=== PATIENT | female | born 1950 | race Caucasian/White ===

== ENCOUNTER → 2019-02-28 | Outpatient (CLI) | payer MEDICARE, OTHER ==
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
== END | disposition home or self-care (01) ==
LOC: SLEEP 15:42
PROVIDERS: ATTEND Internal Medicine
DX: G47.33 Obstructive sleep apnea (adult) (pediatric) (principal); G25.81 Restless legs syndrome; R35.1 Nocturia; E66.9 Obesity, unspecified; I10 Essential (primary) hypertension; E03.9 Hypothyroidism, unspecified; R42 Dizziness and giddiness; F32.9 Major depressive disorder, single episode, unspecified; F41.9 Anxiety disorder, unspecified; E78.5 Hyperlipidemia, unspecified; K21.9 Gastro-esophageal reflux disease without esophagitis; Z98.890 Other specified postprocedural states; Z87.09 Personal history of other diseases of the respiratory system; Z68.30 Body mass index [BMI] 30.0-30.9, adult; Z92.3 Personal history of irradiation; Z91.81 History of falling; Z90.711 Acquired absence of uterus with remaining cervical stump; Z99.89 Dependence on other enabling machines and devices
CPT/HCPCS: 99211

== ENCOUNTER → 2021-01-14 | Outpatient (CLI) | payer MEDICARE, BC ==
--- NOTE | 2021-01-14 17:22 | SFUN ---
SLEEP CENTER FOLLOW UP NOTE DATE OF SERVICE: 01/14/2021 This 70-year-old lady has been followed in Sleep Center for treatment of obstructive sleep apnea-hypopnea syndrome. I saw this patient for consultation in 2019 when we did a polysomnogram which showed that the patient had obstructive sleep apnea. Then we did a CPAP titration, when her respiration was normalized, and the patient received her CPAP unit, but she has never come for a follow-up visit since that time. I discussed the results of her sleep studies with the patient in detail. Since starting to use CPAP equipment, she feels significantly better. [place] Sleepiness Scale today is 10. She does not have significant problems using the CPAP equipment with relationship to mask fitting, pressure or humidification. She is able to use the equipment every night. She does not remember when she replaced her air filter in her machine. I checked her CPAP unit. Range of the pressure is 5 to 15, average pressure 9.7. Usage is 30/30 nights for more than 4 hours, average 8.4 hours per night. Leak is 23 L/minute, which is borderline. Apnea-hypopnea index is 4.1, which is normal. The filter needs to be replaced. It is a grayish color instead of white. MEDICATIONS: 1. Synthroid 100 mcg once a day. 2. Losartan 100 mg once a day. 3. Hydrochlorothiazide 25 mg once a day. 4. Duloxetine 60 mg once a day. 5. Buspirone 10 mg one tablet 3 times a day. 6. Lamotrigine 150 mg two tablets once a day. 7. Fluticasone nasal spray. 8. Atorvastatin 20 mg once a day. 9. Ropinirole 1 mg once a day. 10.Amlodipine 5 mg once a day. 11.Montelukast 10 mg once a day. 12.Levocetirizine 5 mg once a day. 13.Omeprazole 40 mg once a day. 14.Meloxicam 7.5 mg once a day. PHYSICAL EXAMINATION: GENERAL: A pleasant patient in no distress. VITAL SIGNS: BP 127/76, HR 62, RR 12, height 5 feet 5 inches, weight 196.8, body mass index 30.9, temperature 97.7, oxygen saturation at room air 97%. HEENT: PERRLA, EOMI. Evaluation of oropharynx showed tongue protrudes midline. Low position of soft palate. Mallampati III. NECK: Supple. No JVD. Thyroid is not palpable. LUNGS: Clear to percussion and to auscultation. Good air exchange. No wheezing or rhonchi. HEART: S1, S2 regular. No murmurs, gallops or rubs. ABDOMEN: Slightly obese. EXTREMITIES: No clubbing or cyanosis. WAREHOUSE MATERIAL HANDLER: Awake, alert, and oriented X3. Cranial nerves 2 to 7 intact. There is no fasciculation or atrophy. noted. No focal deficits observed. IMPRESSION: 1. Obstructive sleep apnea-hypopnea syndrome. The patient demonstrated 100% compliance with treatment, benefitting from treatment. 2. Mild obesity. 3. Hypertension. 4. Hypothyroidism. 5. History of anxiety. 6. History of depression. 7. Hyperlipidemia. 8. Acid reflux. 9. Restless leg symptoms. 10.History of nasal problems, status post nasal surgery for nasal septum deviation. 11.Status post tonsillectomy and adenoidectomy. 12.Status post bilateral surgery for cataracts. 13.Status post spinal surgery for spinal stenosis and ruptured disc on June 03, 2020. 14.History of complex seizure disorder. 15.History of mitral valve prolapse. PLAN: 1. Position of the machine should be about a foot lower than the position of the head. 2. Chamber of humidifier should be dried in the morning and also tube has to be dried in the morning. 3. Replace air filter. 4. Patient will continue to use PAP equipment every night for the whole night. 5. Sleep hygiene with regular time in bed for at least 7-1/2 to 8 hours. 6. Precautions related to driving. No driving if feeling sleepiness. 7. I will maintain all necessary prescription for PAP supplies including mask, tube, filters. 8. Watching weight. 9. Follow-up visit in 6 months or earlier if patient has any problems. Thank you very much for allowing me to participate in the management of your patient. Sincerely, Romeo Cottrell MD, PhD, FAASM Diplomat of [employer] [employer] [employer] Water Mechanic of [facility] [place] MMODL / HANNAH: [id number] /
== END ==
LOC: SLEEP 14:31
PROVIDERS: ATTEND Internal Medicine
DX: G47.33 Obstructive sleep apnea (adult) (pediatric) (principal); E66.9 Obesity, unspecified; I10 Essential (primary) hypertension; E78.5 Hyperlipidemia, unspecified; E03.8 Other specified hypothyroidism; F41.9 Anxiety disorder, unspecified; F32.9 Major depressive disorder, single episode, unspecified; K21.9 Gastro-esophageal reflux disease without esophagitis; Z98.890 Other specified postprocedural states; G25.81 Restless legs syndrome; Z98.41 Cataract extraction status, right eye; Z98.42 Cataract extraction status, left eye; Z90.09 Acquired absence of other part of head and neck; Z98.1 Arthrodesis status; I34.1 Nonrheumatic mitral (valve) prolapse; G40.209 Localization-related (focal) (partial) symptomatic epilepsy and epileptic syndromes with complex partial seizures, not intractable, without status epilepticus

== ENCOUNTER → 2021-07-15 | Outpatient (CLI) | payer MEDICARE, BC ==
--- NOTE | 2021-07-15 20:37 | SFUN ---
SLEEP CENTER FOLLOW UP NOTE DATE OF SERVICE: 07/15/2021 This 70-year-old lady has been followed in Sleep Center for treatment of obstructive sleep apnea-hypopnea syndrome. The patient continues to use her CPAP equipment every night for the whole night. She is using a cleaning system for the CPAP. [place] Sleepiness Scale today is only 1, which is perfect. I checked her CPAP unit. Range of the pressure is 5 to 15, with average pressure 9.4 cm of water, usage 28/30 nights for more than 4 hours, average usage 8.3 hours per night, which is good compliance. Leak is increased at 42 L/minute. Apnea-hypopnea index is slightly above border, 6.1. Patient sometimes has discharge from her nose in the morning. I discussed with her adjustments of humidity; she did not know how to adjust it by herself, and I explained to her in detail the process of adjustments. MEDICATIONS: 1. Losartan 100 mg once a day. 2. Hydrochlorothiazide 25 mg once a day. 3. Synthroid 100 mcg once a day. 4. Omeprazole once a day. 5. Restasis twice a day. 6. Atorvastatin 20 mg once a day. 7. Ropinirole 1 mg once a day. 8. Fluticasone nasal spray. PHYSICAL EXAMINATION: GENERAL: Pleasant patient in no distress. VITAL SIGNS: BP 105/63, HR 79, RR 15, height 5 feet 5 inches, weight 181.4, which is 15 pounds less than during the last visit. Body mass index 30.1. Temperature 97.5, oxygen saturation at room air 98%. HEENT: PERRLA, EOMI, evaluation of oropharynx showed tongue protrudes midline. Low position of soft palate; Mallampati III. NECK: Supple, no JVD. Thyroid is not palpable. LUNGS: Clear to percussion and to auscultation. Good air exchange. No wheezing or rhonchi. HEART: S1, S2 regular. No murmurs, gallops, or rubs. ABDOMEN: Soft and nontender. Bowel sounds are present. No organomegaly appreciated. EXTREMITIES: No clubbing or cyanosis. TANK BUILDER SUPERVISOR: Awake, alert, and oriented X3. Cranial nerves 2 to 7 intact. There is no fasciculation or atrophy. noted. No focal deficits observed. IMPRESSION: 1. Obstructive sleep apnea-hypopnea syndrome. Patient demonstrated great compliance with treatment, benefitting from treatment. 2. Mild obesity. Patient lost about 15 pounds since last visit. 3. Hypertension, under good control with medications. 4. Hypothyroidism. 5. History of anxiety. 6. History of depression. 7. Hyperlipidemia. 8. Acid reflux. 9. Restless legs syndrome, on treatment with ropinirole. 10.History of nasal problems. Patient still sometimes has discharge from her nose in the morning. 11.Allergies. 12.Status post tonsillectomy and adenoidectomy. 13.Status post bilateral surgery for cataracts. 14.Status post spinal surgery for spinal stenosis and disc rupture in May of 2020. 15.History of complex seizure disorder. 16.History of mitral valve prolapse. PLAN: 1. The patient should stop using the cleaning system for the machine. There is some data that it may create some problems. She should use soap and water. 2. I taught the patient how to adjust humidity in the machine. She could try to change level of humidity with a goal to decrease any nasal problems in the morning after awakening. 3. Patient will continue to use PAP equipment every night for the whole night. 4. Sleep hygiene with regular time in bed for at least 7-1/2 to 8 hours. 5. Precautions related to driving. No driving if feeling sleepiness. 6. I will maintain all necessary prescription for PAP supplies including mask, tube, filters. 7. Watching weight. 8. Follow-up visit in 6 months or earlier if patient has any problems. Thank you very much for allowing me to participate in the management of your patient. Sincerely, Romeo Cottrell MD, PhD, FAASM Diplomat of [employer] Specialties Sleep Medicine Board of [employer] Board of Internal Medicine Clerical Supervisor of [facility] [place] MMODL / THUN: [id number] /
== END | disposition home or self-care (01) ==
LOC: SLEEP 10:35
PROVIDERS: ATTEND Internal Medicine
DX: G47.33 Obstructive sleep apnea (adult) (pediatric) (principal); E66.9 Obesity, unspecified; I10 Essential (primary) hypertension; E03.9 Hypothyroidism, unspecified; E78.5 Hyperlipidemia, unspecified; K21.9 Gastro-esophageal reflux disease without esophagitis; G25.81 Restless legs syndrome; Z86.59 Personal history of other mental and behavioral disorders; Z98.890 Other specified postprocedural states

== ENCOUNTER → 2022-01-13 | Outpatient (CLI) | payer MEDICARE, BC ==
--- NOTE | 2022-01-13 13:00 | SFUN ---
SLEEP CENTER FOLLOW UP NOTE DATE OF SERVICE: 01/13/2022 This 71-year-old lady has been followed in Sleep Center for treatment of obstructive sleep apnea-hypopnea syndrome. The patient continues to use her CPAP equipment every night, getting her supplies on time. [place] Sleepiness Scale today is increased to 12. I checked her CPAP unit. There is no cover for air filter, and there is no air filter in the machine. I checked her unit. Range of the pressure is 5 to 15, average pressure 10.3. Humidity is at level 4, but the patient explained that she was recommended not to use water for the machine by her , and she does not put any water in to humidify. I explained to her that she should not keep the humidifier heated and adjusted the heating to zero. Usage is 30/30 nights for more than 4 hours, average 8.7 hours per night, which is good compliance. Leak increased to 40 L/minute. Apnea-hypopnea index increased to 8.1, which is slightly above normal range. MEDICATIONS: 1. Synthroid 125 mcg once a day. 2. Losartan/hydrochlorothiazide 125 mg once a day. 3. Duloxetine 60 mg one capsule daily. 4. Prevagen 1 capsule daily. 5. Buspirone 10 mg one tablet 3 times a day. 6. Lamotrigine 150 mg two tablets in the morning. 7. Atorvastatin 20 mg one tablet in the evening. 8. Ropinirole 1 mg one tablet a day. 9. Amlodipine 5 mg one tablet once a day in the evening. 10.Montelukast 10 mg once a day. 11.Calcium supplement Pepcid 2 tablets daily in the evening. 12.Restasis eyedrops. 13.Potassium supplement. 14.MiraLAX powder. 15.Symbicort twice a day each nostril. 16.Mucinex. 17.Fexofenadine 180 mg once a day one tablet. 18.Fish oil supplement. 19.Fluticasone nasal spray. 20.Albuterol for cough with exercise intolerance. PHYSICAL EXAMINATION: GENERAL: Pleasant patient in no distress. VITAL SIGNS: BP 111/67, HR 78, RR 18, height 5 feet 5 inches, weight 190.4 pounds, which is 9 pounds more than during previous visit. Temperature 97.0, oxygen saturation at room air 98%. Height 5 feet 5 inches. HEENT: ROLANDO, KOBYMI, evaluation of oropharynx showed tongue protrudes midline. NECK: Supple, no JVD. Thyroid is not palpable. LUNGS: Clear to percussion and to auscultation. Good air exchange. No wheezing or rhonchi. HEART: S1, S2 regular. No murmurs, gallops, or rubs. ABDOMEN: Soft and nontender. Bowel sounds are present. No organomegaly appreciated. EXTREMITIES: No clubbing or cyanosis. PRECISION GRINDER EXTERNAL: Awake, alert, and oriented X3. Cranial nerves 2 to 7 intact. There is no fasciculation or atrophy. noted. No focal deficits observed. IMPRESSION: 1. Obstructive sleep apnea-hypopnea syndrome. Patient demonstrated 100% compliance with treatment, benefitting from treatment. Slight increasing of apnea-hypopnea index. The patient does not put any water in the machine to humidify and keeps the humidifier heating on. 2. Hypertension. 3. Hypothyroidism. 4. History of anxiety and depression. 5. Hyperlipidemia. 6. Acid reflux. 7. History of restless legs syndrome, on treatment with ropinirole. 8. History of nasal problems. 9. Allergies. 10.Status post tonsillectomy and adenoidectomy. 11.Status post bilateral surgery for cataracts. 12.Status post spinal surgery for spinal stenosis and disk rupture in May of 2020. 13.History of complex seizure disorder. 14.History of mitral valve prolapse. 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 16.Mild asthma. 17.History of duodenal ulcer. 18.Pre-diabetic. PLAN: 1. I put the humidity level at zero because the patient cannot use heated humidifier without water in the chamber; may increase risk for fire. 2. The patient needs to get an air filter and cover for the air filter. Prescription was written and given to the patient; she will go to [facility] to get those supplies today. 3. Patient will continue to use PAP equipment every night for the whole night. 4. Sleep hygiene with regular time in bed for at least 7-1/2 to 8 hours. 5. Precautions related to driving. No driving if feeling sleepiness. 6. I will maintain all necessary prescription for PAP supplies including mask, tube, filters. 7. Watching weight. 8. Follow-up visit in 6 months or earlier if patient has any problems. Thank you very much for allowing me to participate in the management of your patient. Sincerely, Romeo Cottrell MD, PhD, FAASM Diplomat of [place] [employer] Specialties Sleep Medicine Board of [place] Board of Internal Medicine Executive Staff Assistant of [facility] [place] ASHLEY / HANNAH: [id number] /
== END | disposition home or self-care (01) ==
LOC: SLEEP 10:11
PROVIDERS: ATTEND Internal Medicine
DX: G47.33 Obstructive sleep apnea (adult) (pediatric) (principal); I10 Essential (primary) hypertension; E03.9 Hypothyroidism, unspecified; F41.9 Anxiety disorder, unspecified; F32.A Depression, unspecified; G25.81 Restless legs syndrome; Z87.11 Personal history of peptic ulcer disease; R73.03 Prediabetes; J45.909 Unspecified asthma, uncomplicated; G40.909 Epilepsy, unspecified, not intractable, without status epilepticus; I34.1 Nonrheumatic mitral (valve) prolapse

== ENCOUNTER → 2022-07-28 | Outpatient (CLI) | payer MEDICARE, BC ==
--- NOTE | 2022-07-28 11:34 | P.PN ---
Subjective DATE: 07/28/2022 FOLLOW UP VISIT. Patient with obstructive sleep apnea hypopnea syndrome return to sleep center for follow-up visit. Information from previous visit have been reviewed. Patient is using PAP equipment every night for the whole night, getting PAP supplies in time. The patient does not have significant problems with the mask, PAP unit and humidification. [place] sleepiness scale is 8. I checked PAP unit. No air filter in CPAP unit. PAP unit pressure 5-15, average 10.2 cm H2O. Usage is 100 % for more then 4 hours, average 8.9 hours per night. Leak is 24 l/m, which is in acceptable range. Apnea Hypopnea Index is 5.0, which is normal. MEDICATIONS:1. Synthroid 125 g once a day 2. Losartanhydrochlorothiazide 10/25 mg once a day 3. Duloxetine 90 mg once a day 4. Buspirone 10 mg 3 times a day 5. Atorvastatin 20 mg once a day 6. Ropinirole 1 mg twice a day 7. Amlodipine 5 mg once a day 8. Omeprazole 40 mg once a day Albuterol, Montelucast During physical exam: GENERAL: A pleasant patient without any distress. VITAL SIGNS: BP 121/68, HR 85, RR 20, weight 196.4, temperature 97.7, oxygen saturation at room air 97 % . HEENT: PERRLA, EOMI. NECK: Supple. No JVD. LUNGS: Clear to percussion and to auscultation. Good air exchange. No wheezing or rhonchi. HEART: S1, S2 regular. ABDOMEN: Soft and nontender.[] EXTREMITIES: No clubbing or cyanosis. BUILDING APPRAISER: Awake, alert, and oriented x3. No focal deficit. Impressions: 1. Obstructive sleep apnea-hypopnea syndrome. Patient demonstrated great compliance with treatment, benefiting from treatment. No air filter in CPAP unit. 2. Hypertension. 3. Hypothyroidism. 4. History of anxiety and depression. 5. Hyperlipidemia. 6. Acid reflux. 7. Restless leg syndrome. 8. ALLERGIES. 9. History of nasal problems. 10. Status post tonsillectomy and adenoidectomy. 11. Status post bilateral surgery for cataracts. 12. Status post spinal surgery for spinal stenosis and disc rupture in 2019. 13. History of complex surgery disorder 14. 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 History of duodenal ulcer. Plan: 1. Continue using PAP equipment every night for the whole night. To install air filter immediately to CPAP unit. 2. To change air filter at least 1-2 times per month. 3. PAP unit should stay lower then position of the head. 4. Advised patient to remove all remaining water from humidifier canister daily and make it dry after each usage. Refill canister with fresh distilled water before each usage. 5. Sleep hygiene with regular time in bed for at least 8 hours. 6. Precautions related to driving. No driving if feel any sleepiness. 7. I will maintain prescription for PAP supplies including mask, tube, filters. 8. Follow up visit in 6 months or earlier if patient has any problems. 9. Watching weight. Thank you very much for allowing me to participate in the management of your patient. Romeo Cottrell MD, PhD, FAASM. Diplomat of [place] [employer], Sleep Medicine Board by [place] [employer] Internal Medicine Washer Repairman of [facility] [place]
== END ==
LOC: SLEEP 10:53
PROVIDERS: ATTEND Internal Medicine
DX: G47.33 Obstructive sleep apnea (adult) (pediatric) (principal); Z99.89 Dependence on other enabling machines and devices; I10 Essential (primary) hypertension; E03.9 Hypothyroidism, unspecified; E78.5 Hyperlipidemia, unspecified; K21.9 Gastro-esophageal reflux disease without esophagitis; Z86.59 Personal history of other mental and behavioral disorders; G25.81 Restless legs syndrome; Z87.09 Personal history of other diseases of the respiratory system; Z98.890 Other specified postprocedural states; Z90.89 Acquired absence of other organs; Z86.79 Personal history of other diseases of the circulatory system; D89.89 Other specified disorders involving the immune mechanism, not elsewhere classified; Z87.19 Personal history of other diseases of the digestive system
CPT/HCPCS: 99212

== ENCOUNTER → 2023-02-09 | Outpatient (CLI) | payer MEDICARE, BC ==
--- NOTE | 2023-02-09 11:59 | P.PN ---
Subjective DATE: 02/09/2023 FOLLOW UP VISIT. Patient with obstructive sleep apnea hypopnea syndrome return to sleep center for follow-up visit. Information from previous visit have been reviewed. Patient is using PAP equipment every night for the whole night, getting PAP supplies in time. The patient does not have significant problems with the mask, PAP unit and humidification. [place] sleepiness scale is 7, which is normal. I checked information from PAP unit. PAP unit pressure 5-15 cm H2O. Usage is 100 % for more then 4 hours, average 7.9 hours per night. Leak is slightly increased 35 l/m. Apnea Hypopnea Index is 4.6, which is normal. MEDICATIONS:1. Atorvastatin 20 mg once a day 2. Ropinirole 1 mg twice a day 3. Amlodipine 5 mg once a day 4. Singulair 10 mg once a day 5. Omeprazole 40 mg once a day 6. Albuterol 7. Fluticasone 8. Losartan 100 mg once a day 9. Synthroid 112 g once a day 10. Buspirone 5 mg twice a day 11. Trazodone 50 mg in the evening During physical exam: GENERAL: A pleasant patient without any distress. VITAL SIGNS: BP 114/68, HR 80, RR 14 , weight 168.4, temperature 98.6, oxygen saturation at room air 97 % . HEENT: PERRLA, EOMI. NECK: Supple. No JVD. LUNGS: Clear to percussion and to auscultation. Good air exchange. No wheezing or rhonchi. HEART: S1, S2 regular. ABDOMEN: Soft and nontender.[] EXTREMITIES: No clubbing or cyanosis. ORTHOPEDIC PHYSICIAN ASSISTANT: Awake, alert, and oriented x3. No focal deficit. Impressions: 1. Obstructive sleep apnea-hypopnea syndrome. Patient demonstrated great compliance with treatment, benefiting from treatment. 2. Hypertension. 3. History of anxiety and depression. 4. Hypothyroidism. 5. Restless leg syndrome. 6. Acid reflux. 7. Hyperlipidemia. 8. ALLERGIES. 9. 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 10. History of mitral valve prolapse. 11. Status post spinal surgery for spinal stenosis and disc rupture in 2019. 12. History of complex seizure disorder. Plan: 1. Continue using PAP equipment every night for the whole night. 2. To change air filter at least 1-2 times per month. 3. Do not to use cleaning system for CPAP unit itself. Okay for mask, tube, humidified chamber. 4. Advised patient to remove all remaining water from humidifier canister daily and make it dry after each usage. Refill canister with fresh distilled water before each usage. 5. Sleep hygiene with regular time in bed for at least 8 hours. 6. Precautions related to driving. No driving if feel any sleepiness. 7. I will maintain prescription for PAP supplies including mask, tube, filters. 8. Watching weight. 9. Follow up visit in 6 months or earlier if patient has any problems. Thank you very much for allowing me to participate in the management of your patient. Romeo Cottrell MD, PhD, FAASM. Diplomat of [place] [employer] Medicine, Sleep Medicine Board by [place] [employer] of Internal Medicine Packager of [facility] [place]
== END ==
LOC: SLEEP 10:53
PROVIDERS: ATTEND Internal Medicine
DX: G47.33 Obstructive sleep apnea (adult) (pediatric) (principal); E03.9 Hypothyroidism, unspecified; E78.5 Hyperlipidemia, unspecified; F32.A Depression, unspecified; F41.9 Anxiety disorder, unspecified; G25.81 Restless legs syndrome; I10 Essential (primary) hypertension; K21.9 Gastro-esophageal reflux disease without esophagitis; Z79.899 Other long term (current) drug therapy; Z98.890 Other specified postprocedural states; Z99.89 Dependence on other enabling machines and devices; Z79.890 Hormone replacement therapy
CPT/HCPCS: 99212

== ENCOUNTER → 2023-12-14 | Outpatient (CLI) | payer MEDICARE, OTHER ==
[2023-12-14 14:15] VITALS: BP 132/70; PULSE 80; RESP 16; TEMP 98.3
--- NOTE | 2023-12-14 15:23 | P.PN ---
Subjective DATE: 12/14/2023 FOLLOW UP VISIT. Patient with obstructive sleep apnea hypopnea syndrome return to sleep center for follow-up visit. Information from previous visit have been reviewed. Patient is using PAP equipment every night for the whole night, getting PAP supplies in time. The patient does not have significant problems with the mask, PAP unit and humidification. [place] sleepiness scale is 7, which is normal. I checked information from PAP unit. PAP unit pressure 5-15, average 11.3 cm H2O. Usage is 100% for more then 4 hours, average 8.8 hours per night. Leak is increased to 37 l/m. Apnea Hypopnea Index is 9.9 average for the last months and 7.3 average for the last 3 months, although last night 3.2. During previous visit apnea-hypopnea index was 4.6. MEDICATIONS:1. Synthroid 100 mcg once a day 2. Losartan 100 mg once a day 3. Hydrochlorothiazide 25 mg once a day 4. Duloxetine 60 mg once a day 5. Buspirone 20 mg twice a day 6. Atorvastatin 20 mg once a day 7. Ropinirole 1 mg once a day 8. Amlodipine 5 mg once a day During physical exam: GENERAL: A pleasant patient without any distress. VITAL SIGNS: Please see below, BMI 26.7. HEENT: PERRLA, EOMI.low position of soft palate, Mallapati 3 . NECK: Supple. No JVD. LUNGS: Clear to percussion and to auscultation. Good air exchange. No wheezing or rhonchi. HEART: S1, S2 regular. ABDOMEN: Soft and nontender.[] EXTREMITIES: No clubbing or cyanosis. SIGNALLING AND COMMUNICATIONS ENGINEER: Awake, alert, and oriented x3. No focal deficit. Impressions: 1. Obstructive sleep apnea-hypopnea syndrome. Patient demonstrated great compliance with treatment, benefiting from treatment, but apnea-hypopnea index slightly increased comparing with previous visit. 2. Hypertension. 3. History of depression and anxiety. 4. Hypothyroidism. 5. Restless leg syndrome. 6. Hyperlipidemia. 7. Acid reflux. 8. Allergies. 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 10. History of mitral valve prolapse. 11. Status post spinal surgery for spinal stenosis and disc rupture in 2019. 12. History of complex seizure disorder. I increased pressure to the range 5 to 16 cm of water in CPAP unit. Plan: 1. Continue using PAP equipment every night for the whole night. 2. To change air filter at least 1-2 times per month. 3. PAP unit should stay lower then position of the head. 4. Advised patient to remove all remaining water from humidifier canister daily and make it dry after each usage. Refill canister with fresh distilled water before each usage. 5. Sleep hygiene with regular time in bed for at least 8 hours. 6. Precautions related to driving. No driving if feel any sleepiness. 7. I will maintain prescription for PAP supplies including mask, tube, filters. 8. Follow up visit in 6 months or earlier if patient has any problems. 9. Watching weight. Thank you very much for allowing me to participate in the management of your patient. Romeo Cottrell MD, PhD, FAASM. Diplomat of [place] [employer], Sleep Medicine Board by [place] [employer] Officer of [facility] [place] Objective - Vital Signs Vital signs: Vital Signs Temp 98.3 F 12/14/23 14:01 Pulse 80 12/14/23 14:01 Resp 16 12/14/23 14:01 BP 132/70 12/14/23 14:01 Pulse Ox 96 12/14/23 14:01 FiO2 Intake & Output 12/13/23 12/14/23 12/14/23 18:59 06:59 18:59 Weight 71.668 kg
== END ==
LOC: 3 N SLEEP 13:29
PROVIDERS: ATTEND Internal Medicine
DX: G47.33 Obstructive sleep apnea (adult) (pediatric) (principal); I10 Essential (primary) hypertension; F32.A Depression, unspecified; F41.9 Anxiety disorder, unspecified; E03.9 Hypothyroidism, unspecified; G25.81 Restless legs syndrome; E78.5 Hyperlipidemia, unspecified; K21.9 Gastro-esophageal reflux disease without esophagitis; R56.9 Unspecified convulsions; Z99.89 Dependence on other enabling machines and devices; Z79.899 Other long term (current) drug therapy; Z79.890 Hormone replacement therapy
CPT/HCPCS: 99212